=== PATIENT | female | born 1950 | race Caucasian/White ===

== ENCOUNTER 2017-10-08 07:40 | Day surgery (SDC) | payer MEDICARE ==
[~2017-10-08] VITALS: Ht 167.6 cm; Wt 84.4 kg
[~2017-10-08 07:40] MED LIST: ACAI PO; AMINO PO; CINNAMON500 MG PO; CULTURELLE ADVA1 CAP PO; DHA ALGAL-900300 MG PO; DHEA50 M1 PO; FISH OIL1 CAP PO; FLUARIX QUADRIV1 INJ IM; GARLIC1000 MG PO; HAIR/SKIN/NAILS1 TAB PO; HYDROCHLOROT12.5 MG PO; HYZAAR1 TA1 PO; LUTEIN PO; MELATONIN3 MG PO; MILK THISTLE1000 MG PO; PREGNENOLONE PO; PREMARIN0.625 M1; PREVAGEN10 MG PO; TURMERI1 PO; VISION FORMULA PO; VIT E COMPLX400 UNIT PO; VITAMIN D35000 UNI1 PO; [UNRECOGNIZED DRUG - CODE] PO; [UNRECOGNIZED DRUG - OTHER]; [UNRECOGNIZED DRUG - OTHER] PO; [UNRECOGNIZED DRUG - OTHER] PO; [UNRECOGNIZED DRUG - OTHER] PO; [UNRECOGNIZED DRUG - OTHER] PO; [UNRECOGNIZED DRUG - OTHER] PO; [UNRECOGNIZED DRUG - OTHER] PO; [UNRECOGNIZED DRUG - OTHER] PO; [UNRECOGNIZED DRUG - OTHER] PO; [UNRECOGNIZED DRUG - OTHER] PO; [UNRECOGNIZED DRUG - OTHER] PO
[2017-10-08 10:40] VITALS: BP 120/61
== END 2017-10-08 10:47 | disposition home or self-care (01) ==
LOC: ENDO 07:40
PROVIDERS: ATTEND Surgery
PROC: 0DJD8ZZ Inspection of Lower Intestinal Tract, Via Natural or Artificial Opening Endoscopic (ICD-10-PCS; principal; 2017-10-08)
DX: Z12.11 Encounter for screening for malignant neoplasm of colon (principal)

== ENCOUNTER 2021-10-19 15:11 | Observation (INO) | payer MEDICARE ==
[~2021-10-19] VITALS: Ht 167.6 cm; Wt 82.0 kg
[2021-10-19 16:45] LABS: HEMATOCRIT 41.3 % (37.0-47.0); HEMOGLOBIN 13.3 g/dl (12.0-16.0); IMMATURE GRANULOCYTES 0.4 % (0.0-5.0); MEAN CELL VOLUME 91.2 fL CALC (80.0-100.0); MEAN CORPUSCULAR HGB 29.4 pG CALC (26.0-32.0); MEAN CORPUSCULAR HGB CONC 32.2 g/dL CAL (32.0-36.0); NEUT# 4.99 thou/uL (2.00-7.15); RED BLOOD COUNT 4.53 mill/uL (4.20-5.60)
[2021-10-19 16:58] LABS: ALBUMIN 4.8 g/dL (3.2-5.0); ALKALINE PHOSPHATASE 71 u/l (38-126); ANION GAP 15 (6-22 (CALC)); BILIRUBIN, TOTAL 0.7 mg/dL (0.0-1.4); BUN 15 mg/dL (8-23); BUN/CREATININE RATIO 19 (12-20 (CALC)); CARBON DIOXIDE 26 mmol/l (22-30); CHLORIDE 105 mmol/l (95-108); CREATININE 0.8 mg/dL (0.5-1.0); GFR > 60 ML/MIN (>=60 (CALC)); GFR FOR AFR.AMER. > 60 ML/MIN (>=60 (CALC)); LIPASE 45 u/l (23-300); POTASSIUM 3.7 mmol/l (3.5-5.1); SODIUM 142 mmol/l (137-146)
[2021-10-19 16:59] LABS: SGOT/AST 53 u/l (9-36)
[2021-10-19 17:05] LABS: ACT PARTIAL THROMBO TIME 26.5 SECONDS (20.0-32.5); INTERNATIONAL NORMALIZED RATIO 1.2 RATIO (0.7-1.3); PROTHROMBIN TIME 12.5 SECONDS (9.0-12.5)
[2021-10-19 18:53] LABS: TSH, 3RD GENERATION 3.97 uIU/mL (0.47 - 4.68)
[2021-10-19 23:00] VITALS: BP 112/60
[2021-10-19 23:15] VITALS: BP 115/64
[2021-10-19 23:30] VITALS: BP 107/57
[2021-10-20] VITALS (13 sets, daily range): BP systolic 90–145; BP diastolic 52–81
[2021-10-20 06:08] LABS: HEMATOCRIT 39.7 % (37.0-47.0); MEAN CELL VOLUME 91.7 fL CALC (80.0-100.0); MEAN CORPUSCULAR HGB CONC 32.7 g/dL CAL (32.0-36.0); RED BLOOD COUNT 4.33 mill/uL (4.20-5.60); RED CELL DISTRI WIDTH 13.2 % (11.5-15.5)
[2021-10-20 06:16] LABS: ANION GAP 12 (6-22 (CALC)); BUN 12 mg/dL (8-23); BUN/CREATININE RATIO 16 (12-20 (CALC)); CARBON DIOXIDE 23 mmol/l (22-30); CHLORIDE 109 mmol/l (95-108); CREATININE 0.7 mg/dL (0.5-1.0); GFR > 60 ML/MIN (>=60 (CALC)); GFR FOR AFR.AMER. > 60 ML/MIN (>=60 (CALC)); MAGNESIUM 1.8 mg/dL (1.6-2.3); POTASSIUM 4.1 mmol/l (3.5-5.1); SODIUM 141 mmol/l (137-146)
[2021-10-20] MEDS ORDERED: LOPRESSOR 550 MG/TAB PO (15:20)
[2021-10-20] MEDS ORDERED: XARELTO20 MG PO (15:21)
== END 2021-10-20 16:00 | disposition home or self-care (01) ==
LOC: ED 15:11 → ED-I 18:00 → ED 18:18 → ICU 18:19
PROVIDERS: ADMIT Hospitalist; ATTEND Hospitalist
DX: I48.91 Unspecified atrial fibrillation (principal); I10 Essential (primary) hypertension; R53.82 Chronic fatigue, unspecified; Z20.822 Contact with and (suspected) exposure to COVID-19
CPT/HCPCS: J1650